=== PATIENT | male | born 1950 | race Caucasian/White ===

== ENCOUNTER → 2018-05-04 | Outpatient (CLI) | payer MEDICARE ==
[~2018-05-04] MED LIST: ASPIRIN81 MG PO; AVODART0.5 MG PO; BACTRIM DS TAB1 EACH PO; CEREFOLIN TABL1 EACH PO; COLACE100 MG/10 PO; CRESTOR5 MG PO; DAILY VITAMIN1 EAC3 PO; EXFORGE 5-1601 EACH PO; GARCINIA CAMBOGIA PO; NORCO 10MG-325MG1 EA PO; PROBIOTIC & AC1 EACH PO; VITAMIN D2000 UNIT PO
--- NOTE | 2018-05-04 17:37 | Diagnostic Imaging Report ---
EXAMINATION: CHEST 2 VIEWS INDICATION: Hypertension ^[id number] ^[id number] COMPARISON: None FINDINGS: PA and lateral views TUBES and LINES: None. LUNGS: Lungs are well inflated. There is discoid atelectasis in the left lung base. There is no evidence of pneumonia or pulmonary edema. PLEURA: No pleural effusion or pneumothorax. HEART AND MEDIASTINUM: The heart is normal in size. The aorta is mildly ectatic. BONES AND SOFT TISSUES: No focal osseous lesions. Soft tissues are unremarkable. UPPER ABDOMEN: No free air under the diaphragm. IMPRESSION: Left basilar atelectasis. Signed by: Dr. Nia Palma MD on 05/04/2018 5:34 PM
--- NOTE | 2018-05-04 18:21 | Diagnostic Imaging Report ---
Hand Complete CPT code: 97468 Indication:First digit pain Technique: Three views of the left hand obtained Comparison: None. Findings: Patient is unable to remove ring from the fourth digit. Distal radius and ulna appear intact. Carpal bones appear generally well aligned. The digits are intact. There are mild degenerative changes of the CMC joint of the first digit with lateral subluxation of the base of the first metacarpal. No significant degenerative changes elsewhere. No focal osseous lesions. IMPRESSION: No evidence for displaced fracture or current dislocation of the hand. Mild degenerative changes of the CMC joint of the first digit with mild lateral subluxation of the first metacarpal. Signed by: Dr. Nia Palma MD on 05/04/2018 6:17 PM
== END ==
LOC: RAD 16:51
PROVIDERS: ATTEND Internal Medicine
DX: I12.9 Hypertensive chronic kidney disease with stage 1 through stage 4 chronic kidney disease, or unspecified chronic kidney disease (principal); M18.12 Unilateral primary osteoarthritis of first carpometacarpal joint, left hand
CPT/HCPCS: 71046

== ENCOUNTER → 2019-04-03 | Outpatient (CLI) | payer MEDICARE ==
[~2019-04-03] MED LIST changes: +ASPIR 8181 MG PO; +EXFORGE 10-1601 EACH PO; +FLOMAX0.4 MG PO; +MELATONIN3 MG PO
--- NOTE | 2019-04-03 12:18 | Diagnostic Imaging Report ---
EXAM: US RENAL RETROPERITONEAL COMP, US PELVIC (NON OB) [facility] OR F/U DATE: 04/03/2019 10:42 AM INDICATION: Neurogenic bladder COMPARISON: None FINDINGS: The right kidney is normal in size measuring 10.4 x 5.5 x 6.9 cm with cortical thickness of 1.1 cm. Cortical echogenicity is within normal limits. There is no evidence for solid renal mass, hydronephrosis, or shadowing calculi. The left kidney is normal in size measuring 10.8 x 5.1 x 5.8 cm with cortical thickness of 1.4 cm. Cortical echogenicity is within normal limits. There is no evidence for solid renal mass, hydronephrosis, or shadowing calculi. The urinary bladder appears unremarkable. Bilateral ureteral jets are visualized. Prevoid volume is 656 cc. No significant postvoid residual is identified. IMPRESSION: Unremarkable renal ultrasound examination. Signed by: Dr. Oseas Yo MD on 04/03/2019 12:15 PM
== END ==
LOC: US 10:31
PROVIDERS: ATTEND Urology
DX: R39.14 Feeling of incomplete bladder emptying (principal)
CPT/HCPCS: 76770; 76857

== ENCOUNTER → 2019-04-27 | Day surgery (SDC) | payer MEDICARE ==
[2019-04-19 14:45] LABS: BASOPHILS % 0.4 % (0.0-1.0); EOSINOPHILS # (AUTO) 0.1 (0.0-0.4); EOSINOPHILS % 1.6 % (0.0-6.0); HEMATOCRIT 42.6 % (38.2-49.6); HEMOGLOBIN 14.5 g/dL (14.0-18.0); LYMPHOCYTES # (AUTO) 1.5 (1.0-3.2); LYMPHOCYTES % 19.3 % (18.0-39.1); MEAN CORPUSCULAR VOLUME 85.2 fL (81-99); MONOCYTES # (AUTO) 0.7 (0.2-0.8); MONOCYTES % 8.9 % (4.4-11.3); NEUTROPHILS # (AUTO) 5.5 (2.1-6.9); NEUTROPHILS % 69.2 % (38.7-80.0); PLATELET COUNT 216 x10e3/uL (140-360); RED CELL DISTRIBUTION WIDTH 13.2 % (11.7-14.4)
[~2019-04-27] MED LIST changes: +LIDOCAINE HCL 2% LOCAL INJ 5 ML SDV VIAL INJ ONE; +PANTOPRAZOLE SO40 MG PO; +PROPOFOL IV EMULSION 10 MG/ML 50 ML VIAL ONE
[2019-04-27 08:35] VITALS: BP 149/92
--- NOTE | 2019-04-27 09:01 | Operative Report ---
DATE OF PROCEDURE: 04/27/2019 SURGEON: Chuckie Chambers MD PROCEDURE: EGD with biopsies. INDICATIONS FOR PROCEDURE: The patient with a history of ulcerated esophageal stricture to reevaluate and document healing. MEDICATIONS: The patient was done under MAC, please see anesthesiologist's note. PROCEDURE IN DETAIL: With the patient in left lateral decubitus position, the flexible fiberoptic Olympus gastroscope was introduced into the esophagus under direct visualization without any difficulty. The previously described ulcer in GE junction appears to have healed. Esophagus appears to be within normal limits. A minute tongue of velvety red mucosa was noted to extend proximally from the GE junction, and that was biopsied to rule out Joseph's. There was also a minute nodule noted at the GE junction that was biopsied. The scope was then advanced with ease into the stomach traversing a small hiatal hernia. Mucosa overlying the antrum and the body revealed some patchy erythema. The pylorus was of normal contour and shape was intubated with ease and the scope was advanced all the way to the second portion of the duodenum. The scope was then withdrawn slowly mucosa overlying the proximal second portion and then duodenal bulb appeared to be within normal limits. The scope was then withdrawn back into the stomach and retroflexed, and the mucosa overlying the fundus appeared to be within normal limits. The previously described hiatal hernia was also noted in the retroflexed position. The scope was then straightened out, it was subsequently withdrawn. The patient tolerated the procedure well. IMPRESSION: 1. Normal esophagus. 2. Previously described ulcer, GE junction well healed. 3. Minute nodule, GE junction biopsied. 4. Small hiatal hernia. 5. Gastritis, mild. PLAN: Follow up histology. Continue Protonix 40 mg one p.o. q.a.m. a.c. Chuckie Chambers MD [facility] [place] /[id number] cc: Bib Osman MD
== END | disposition home or self-care (01) ==
LOC: OR 05:50
PROVIDERS: ATTEND Internal Medicine Gastroenterology
DX: K92.89 Other specified diseases of the digestive system (principal); K29.70 Gastritis, unspecified, without bleeding; K44.9 Diaphragmatic hernia without obstruction or gangrene; Z01.810 Encounter for preprocedural cardiovascular examination; Z01.812 Encounter for preprocedural laboratory examination; K21.9 Gastro-esophageal reflux disease without esophagitis; G47.33 Obstructive sleep apnea (adult) (pediatric)
CPT/HCPCS: 36415; 43239; 85025; 88305; J2001; J2704

== ENCOUNTER → 2019-06-12 | Outpatient (CLI) | payer MEDICARE ==
[~2019-06-12] MED LIST changes: -LIDOCAINE HCL 2% LOCAL INJ 5 ML SDV VIAL INJ ONE; -PROPOFOL IV EMULSION 10 MG/ML 50 ML VIAL ONE
--- NOTE | 2019-06-12 09:32 | Diagnostic Imaging Report ---
EXAMINATION: PA and lateral views of the chest. COMPARISON: 05/04/2018 CLINICAL HISTORY: Atelectasis DISCUSSION: The lungs are well-inflated. Linear opacity in the left lung base described on the comparison examination has improved. Symmetric nodular opacities project over the lower lungs compatible with nipple shadows. No new consolidation, pleural effusion, or pneumothorax. Mildly tortuous thoracic aorta, unchanged. No pulmonary edema. Normal heart size. No acute osseous abnormalities. IMPRESSION: Resolved subsegmental atelectasis in the left lung base relative to 05/04/2018. No new consolidations. Signed by: Dr. Thomas Jeffery M.D. on 06/12/2019 9:29 AM
== END ==
LOC: RAD 08:33
PROVIDERS: ATTEND Internal Medicine
DX: J98.11 Atelectasis (principal)
CPT/HCPCS: 71046

== ENCOUNTER → 2019-12-12 | Outpatient (CLI) | payer MEDICARE | LOC: RAD 10:14 | PROVIDERS: ATTEND Internal Medicine | DX: M25.531 Pain in right wrist (principal); Z91.81 History of falling ==

== ENCOUNTER → 2020-01-08 | Outpatient (CLI) | payer MEDICARE ==
--- NOTE | 2020-01-08 16:13 | Diagnostic Imaging Report ---
EXAMINATION: CHEST 2 VIEWS INDICATION: Pneumonia COMPARISON: Chest radiograph 05/04/2018 FINDINGS: LINES/TUBES:None LUNGS:The lungs are well-inflated. No focal consolidation or pulmonary edema. PLEURA:No pleural effusion or pneumothorax. MEDIASTINUM:The cardiomediastinal silhouette appears normal in size and shape. BONES/SOFT TISSUES:No acute osseous injury. ABDOMEN:No free air under the diaphragm. IMPRESSION: No focal pneumonia or pulmonary edema. Signed by: Fawad Diane MD on 01/08/2020 4:10 PM
== END ==
LOC: RAD 15:26
PROVIDERS: ATTEND Internal Medicine
DX: J15.9 Unspecified bacterial pneumonia (principal)
CPT/HCPCS: 71046

== ENCOUNTER → 2021-09-10 | Outpatient (CLI) | payer MEDICARE | LOC: RAD 12:23 | PROVIDERS: ATTEND Internal Medicine | DX: J40 Bronchitis, not specified as acute or chronic (principal) | CPT/HCPCS: 71046 ==

== ENCOUNTER → 2021-11-09 | Outpatient (CLI) | payer MEDICARE | LOC: US 07:30 | PROVIDERS: ATTEND Urology | DX: N18.9 Chronic kidney disease, unspecified (principal); N39.0 Urinary tract infection, site not specified | CPT/HCPCS: 76770; 76857 ==

== ENCOUNTER → 2021-12-20 | Outpatient (CLI) | payer MEDICARE | LOC: CT 07:34 | PROVIDERS: ATTEND Urology | DX: N20.0 Calculus of kidney (principal) | CPT/HCPCS: 74176 ==

== ENCOUNTER → 2022-08-06 | Day surgery (SDC) | payer MEDICARE ==
[2022-07-22 08:55] LABS: BASOPHILS % 0.3 % (0.0-1.0); EOSINOPHILS # (AUTO) 0.1 (0.0-0.4); HEMATOCRIT 42.8 % (38.2-49.6); HEMOGLOBIN 14.7 g/dL (14.0-18.0); LYMPHOCYTES # (AUTO) 1.4 (1.0-3.2); LYMPHOCYTES % 24.4 % (18.0-39.1); MEAN CORPUSCULAR HEMOGLOBIN 28.8 pg (28-32); MEAN CORPUSCULAR HGB CONC 34.3 g/dL (31-35); MEAN CORPUSCULAR VOLUME 83.9 fL (81-99); MONOCYTES # (AUTO) 0.5 (0.2-0.8); MONOCYTES % 7.8 % (4.4-11.3); NEUTROPHILS # (AUTO) 3.9 (2.1-6.9); NEUTROPHILS % 66.3 % (38.7-80.0); PLATELET COUNT 172 x10e3/uL (140-360); RED CELL DISTRIBUTION WIDTH 12.8 % (11.7-14.4)
[~2022-08-06] MED LIST changes: +AZOR 10-40 MG1 EACH PO; +DOXAZOSIN MESYLA2 MG PO; +HYOSCYAMINE SULFATE 0.5 MG/ML INJ ONE; +LACTATED RINGER'S 1,000 ML ONE; +LIDOCAINE HCL 2% LOCAL INJ 5 ML SDV VIAL INJ ONE; +METOCLOPRAMIDE HCL 10 MG/2ML VIAL ONE; +PEPCID20 MG PO; +POVIDONE IODINE 0.05% 0.05 % ML PO ONE; +PROPOFOL IV EMULSION 10 MG/ML 20 ML VIAL ONE; +TRAZODONE HCL100 MG PO
[2022-08-06 08:48] VITALS: TEMP 97.3
[2022-08-06 09:15] VITALS: BP 116/71; PULSE 60; RESP 18; O2SAT 98
== END | disposition home or self-care (01) ==
LOC: OR 06:20
PROVIDERS: ATTEND Internal Medicine Gastroenterology
DX: K22.70 Barrett's esophagus without dysplasia (principal); D12.2 Benign neoplasm of ascending colon; D12.3 Benign neoplasm of transverse colon; K29.70 Gastritis, unspecified, without bleeding; K44.9 Diaphragmatic hernia without obstruction or gangrene; K57.30 Diverticulosis of large intestine without perforation or abscess without bleeding; K64.8 Other hemorrhoids; Z71.3 Dietary counseling and surveillance; G47.33 Obstructive sleep apnea (adult) (pediatric); I12.9 Hypertensive chronic kidney disease with stage 1 through stage 4 chronic kidney disease, or unspecified chronic kidney disease; N18.2 Chronic kidney disease, stage 2 (mild); E78.00 Pure hypercholesterolemia, unspecified; Z01.810 Encounter for preprocedural cardiovascular examination; Z01.812 Encounter for preprocedural laboratory examination; Z79.82 Long term (current) use of aspirin; Z79.899 Other long term (current) drug therapy; Z68.30 Body mass index [BMI] 30.0-30.9, adult; Z85.828 Personal history of other malignant neoplasm of skin
CPT/HCPCS: 36415; 43239; 45385; 85025; 88305; 93005; C9113; J1980; J2001; J2704; J2765; J7121; 43235; 45378